=== PATIENT | male | born 1975 | race Caucasian/White ===

== ENCOUNTER 2017-03-11 18:38 | Emergency (ER) | payer BC ==
--- NOTE | 2017-03-22 19:58 | ER ---
ADMIT: 03/11/2017 RM/LOC: ER [facility] MR#: [id number] [facility] [address] [place] [id number] OLAYINKA RAMIREZ [address] [place] [address] Emergency Room Report SEX: M AGE: 42 : 1975 DATE: 03/11/2017 ADDENDUM: See T-sheet for complete H and P. The patient is a very pleasant 42-year-old gentleman who presents to the ER complaining of some left shoulder pain and numbness in his left arm. This began last night. It has pretty much been present since onset. It does not seem to be associated with activity. He does have history of some anxiety and panic attacks which he experienced last night and took his Zantac for which seemed to get better. Quite concerned about this discomfort in his left arm and shoulder which he cannot account for any new activities that would have brought it on. Of note, the patient does exercise regularly and was able to run last week at his normal pace and distance without any symptoms of any chest pain at that time. The patient does not report any cardiac risk factors, does not have a strong family history of cardiac disease. I did get an EKG here which showed sinus bradycardia with no signs of ischemia or acute DC. His rate was 56. I discussed with the patient that I believe it is extremely unlikely he had any cardiac disease that was causing this, but he did seem quite anxious, so we discussed the risks and benefits and decided to go ahead and do a workup in the ER consisting of CBC, BMP, cardiac enzymes, and a chest x-ray. The results of those tests were normal and patient actually is feeling better at the end of his stay and feels less anxious. He is discharged home and told he can return to the ER for any concerning symptoms. Otherwise, he is to follow up with Dr. Myles as needed. DIAGNOSES: 1. Left shoulder pain. 2. Anxiety. 3. Left arm numbness. Olayinka Brooks MD/ caty JOB #: [id number] CC: Erasmo Cintron MD, Attending Physician Sharad Myles MD, Family Physician
== END 2017-03-11 20:40 | disposition home or self-care (01) ==
LOC: ER 18:38
DX: M25.512 Pain in left shoulder (principal); F41.9 Anxiety disorder, unspecified; R20.0 Anesthesia of skin

== ENCOUNTER → 2017-04-17 | Outpatient (CLI) | payer BC | END | disposition home or self-care (01) | LOC: RAD.S 07:48 | DX: R10.13 Epigastric pain (principal) ==